=== PATIENT | male | born 1995 | race Hispanic/Latino ===

== ENCOUNTER → 2017-04-19 | Outpatient (CLI) | payer OTHER ==
[~2017-04-19] MED LIST: IOPAMIDOL 370 MG/ML 200 ML INFUS..BTL INJ ONE; SODIUM CHLORIDE 0.9% 50ML 50 ML ONE
--- NOTE | 2017-04-19 11:05 | Diagnostic Imaging Report ---
EXAMINATION: CT of the neck with contrast HISTORY: Right-sided neck mass for the last 3 weeks COMPARISON: None TECHNIQUE: Multidetector helical axial images were obtained from the sternal notch through the skull base during intravenous infusion of iodinated contrast material. Images were reconstructed using soft tissue and bone algorithms and were viewed in multiplanar format. Intravenous contrast: 100 mL of Isovue 300. FINDINGS: The technologist placed a marker on the skin in the area indicated by the patient on the right side of the neck. Mass: None. Nodes: Heterogeneous density partially enhancing, partially solid and/cystic probable lymph node conglomerate on the right level 2A/3, measuring about 6 x 4 cm largest diameters. Additional prominent, lobulated and enhancing right level 2A, 2B and 3 lymphadenopathy is noted. No significant infiltrate changes are seen surrounding the lymph nodes. Sinuses: Small retention cyst in the left maxillary sinus, otherwise clear Oral cavity: Unremarkable. Salivary glands: Parotid and submandibular glands unremarkable. Pharynx: Unremarkable. Larynx: Unremarkable. Thyroid gland: Unremarkable. Upper esophagus: Unremarkable. Blood vessels: Unremarkable. Bones: Unremarkable. IMPRESSION: 1. Heterogeneous density large lymph node conglomerate on the right level 2A/3, the differential diagnosis would include metastatic lymphadenopathy, lymphoproliferative disorder or less likely suppurative adenitis. 2. No discrete primary is seen in the neck. An ENT evaluation is recommended. Signed by: Dr. Rosie Stephens M.D. on 04/19/2017 11:01 AM
== END ==
LOC: CT 07:29
PROVIDERS: ATTEND Surgery
DX: R22.1 Localized swelling, mass and lump, neck (principal)
CPT/HCPCS: 70491; Q9967

== ENCOUNTER → 2017-05-11 | Day surgery (SDC) | payer OTHER ==
[2017-05-10 13:15] LABS: BASOPHILS % 0.5 % (0.0-1.0); EOSINOPHILS # (AUTO) 0.4 (0.0-0.4); EOSINOPHILS % 4.7 % (0.0-6.0); HEMATOCRIT 34.8 % (38.2-49.6); HEMOGLOBIN 12.2 g/dL (14.0-18.0); LYMPHOCYTES % 23.6 % (18.0-39.1); MEAN CORPUSCULAR HEMOGLOBIN 30.2 pg (28-32); MEAN CORPUSCULAR HGB CONC 35.1 g/dL (31-35); MEAN CORPUSCULAR VOLUME 86.1 fL (81-99); MONOCYTES # (AUTO) 0.7 (0.2-0.8); MONOCYTES % 8.4 % (4.4-11.3); NEUTROPHILS # (AUTO) 5.3 (2.1-6.9); NEUTROPHILS % 62.6 % (38.7-80.0); PLATELET COUNT 210 x10e3/uL (140-360); RED BLOOD COUNT 4.04 x10e6/uL (4.3-5.7)
[~2017-05-11] MED LIST changes: +BUPIVACAINE 0.25% 30ML SDV INJ ONE; +DEXAMETHASONE SOD PHOS INJ 4 MG/ML VIAL ONE; +FENTANYL CITRATE/PF 100MCG/2 ML INJ ONE; +HYDROCODONE/APAP 7.5MG-325MG 1 EA TAB ONE; -IOPAMIDOL 370 MG/ML 200 ML INFUS..BTL INJ ONE; +LIDOCAINE HCL 2% LOCAL INJ 5 ML SDV VIAL INJ ONE; +MIDAZOLAM HCL 2 MG/2 ML VIAL ONE; +MOTRIN200 MG PO; +ONDANSETRON HCL INJ 2 MG/ML VIAL ONE; +PROPOFOL IV EMULSION 10 MG/ML 20 ML VIAL ONE; +SEVOFLURANE INHAL SOLN 250 ML PEN BTL ONE; -SODIUM CHLORIDE 0.9% 50ML 50 ML ONE; +TAMIFLU75 MG PO
--- OUTSIDE RECORDS SUMMARY | 2017-05-11 07:33 | XMS REPORT ---
Author Author [facility] [place] Address Unknown Phone Unavailable Care Team Providers Care Mechanical Unit Repairer Name Role Phone SURAJ EILSE Unavailable Unavailable Problems This patient has no known problems. Allergies, Adverse Reactions, Alerts This patient has no known allergies or adverse reactions. Medications This patient has no known medications. Results Test Description Test Time Test Comments Text Results Atomic Results Result Comments CT SOFT TISSUE NECK W [place] [address] Patient Name: MANJU BARRETO MR #: [id number] : 1995 Age/Sex: 21/M Req # : [id number] Adm Physician: Ordered by: SURAJ ELISE MD Report #: [id number] Location: CT Room/Bed: Procedure: 0125- 0001 CT/CT SOFT TISSUE NECK W Exam Date: 04/19/17 Exam Time: 0828 REPORT STATUS: Signed EXAMINATION: CT of the neck with contrast HISTORY: Right-sided neck mass for the last 3 weeks COMPARISON: None TECHNIQUE: Multidetector helical axial images were obtained from the sternal notch through the skull base during intravenous infusion of iodinated contrast material. Images were reconstructed using soft tissue and bone algorithms and were viewed in multiplanar format. Intravenous contrast: 100 mL of Isovue 300. FINDINGS: The technologist placed a marker on the skin in the area indicated by the patient on the right side of the neck. Mass: None. Nodes: Heterogeneous density partially enhancing, partially solid and/cystic probable lymph node conglomerate on the right level 2A/3, measuring about 6 x 4 cm largest diameters. Additional prominent, lobulated and enhancing right level 2A, 2B and 3 lymphadenopathy is noted. No significant infiltrate changes are seen surrounding the lymph nodes. Sinuses: Small retention cyst in the left maxillary sinus, otherwise clear Oral cavity: Unremarkable. Salivary glands: Parotid and submandibular glands unremarkable. Pharynx: Unremarkable. Larynx: Unremarkable. Thyroid gland: Unremarkable. Upper esophagus: Unremarkable. Blood vessels: Unremarkable. Bones: Unremarkable. IMPRESSION: 1. Heterogeneous density large lymph node conglomerate on the right level 2A/3, the differential diagnosis would include metastatic lymphadenopathy, lymphoproliferative disorder or less likely suppurative adenitis. 2. No discrete primary is seen in the neck. An ENT evaluation is recommended. Signed by: Dr. Shelby Stephens M.D. on 04/19/2017 11:01 AM Dictated By: SHELBY STEPHENS MD [id number] Transcribed By: CAROL on 04/19/17 1101 COPY TO: SURAJ ELISE MD
--- NOTE | 2017-05-11 12:31 | Operative Report ---
DATE OF PROCEDURE: May 11, 2017 PREOPERATIVE DIAGNOSIS: Right posterior upper cervical lymphadenopathy, rule out malignancy. POSTOPERATIVE DIAGNOSIS: Right posterior upper cervical lymphadenopathy, rule out malignancy, pending permanent section. OPERATION PERFORMED: Right neck posterior lymphadenectomy. ANESTHESIA: General. COMPLICATIONS: None. ESTIMATED BLOOD LOSS: Minimal. DESCRIPTION OF PROCEDURE: With the patient lying in bed in the supine position, under good general anesthesia, the neck and right face were prepped with Betadine solution and draped in the usual manner. An incision was made along the upper insertion of the sternocleidomastoid muscle and carried down through the subcutaneous tissue. The platysma was opened, and the anterior border of the sternocleidomastoid muscle was then identified and retracted. Underneath the sternocleidomastoid and posterior to the sternocleidomastoid muscle immediately some very large, rubbery lymph nodes were encountered. Some of these were as much as 2.5 to 3 cm in size. The whole area was then slowly and carefully from all of the surrounding structures and from the jugular vein and was slowly and carefully removed. One of the lymph nodes was sent for frozen section which came back as probably benign pending permanent section. The rest of the lymphadenopathy was sent for permanent section. Hemostasis was ascertained. A 1/4-inch Phillip drain was then left in the cavity and brought out through the incision. The muscle and subcutaneous tissue were then reapproximated with interrupted sutures of 3-0 Vicryl, and the skin was closed with interrupted vertical mattress sutures of 5-0 nylon. A dressing was applied. The sponge, lap and needle count was correct. Patient tolerated the procedure well and returned to the recovery room in stable condition. Job#: [id number]
== END | disposition home or self-care (01) ==
LOC: OR 07:30
PROVIDERS: ATTEND Surgery
DX: C85.11 Unspecified B-cell lymphoma, lymph nodes of head, face, and neck (principal); Z01.812 Encounter for preprocedural laboratory examination
CPT/HCPCS: 36415; 38510; 85025; 88307; 88313; 88331; 88342; J1100; J2001; J2250; J2405